=== PATIENT | female | born 1980 | race Caucasian/White ===

== ENCOUNTER 2019-10-13 18:48 | Emergency (ER) | payer OTHER ==
[~2019-10-13] VITALS: Ht 149.9 cm; Wt 52.2 kg
[2019-10-13 18:56] VITALS: BP_SYST 104
--- NOTE | 2019-10-13 19:11 | NUR ---
Patient to ER bed H1 to gown for evaluation. Side rails up.
--- NOTE | 2019-10-13 19:12 | NUR ---
Patient came to ER.C/O earache x today. Patient states "had right earache this morning, headache x 1 week, bodyache." Patient had co-worker positive Covid-19. A/O,X4, right earache , pain rate 5/10, no SOB.
--- NOTE | 2019-10-13 19:32 | NUR ---
ER Dr. Baxter at bedside examining patient.
[2019-10-13 19:44] VITALS: BP_SYST 104
--- NOTE | 2019-10-13 19:44 | NUR ---
Patient given written and verbal discharge instructions and verbalizes understanding. ER MD discussed with patient the results and treatment provided. Patient in stable condition. ID arm band removed. Rx of Debrox 6.5% Otic drops given. Patient educated on pain management and to follow up with PMD. Pain Scale 2/10. Opportunity for questions provided and answered. Medication side effect fact sheet provided.
== END 2019-10-13 19:44 | disposition home or self-care (01) ==
LOC: SED 18:49
DX: H61.21 Impacted cerumen, right ear (principal)
CPT/HCPCS: 99282